=== PATIENT | male | born 1995 | race Two or more races ===

== ENCOUNTER 2018-09-07 07:46 | Emergency (ER) | payer OTHER ==
[2018-09-07 07:59] VITALS: BMI 19.8
--- NOTE | 2018-09-07 08:50 | PDOC ---
Attending Attestation - Resident Resident Name: Whitney Ann - ED Attending Attestation I have performed the following: I have examined & evaluated the patient, The case was reviewed & discussed with the resident, I agree w/resident's findings & plan - HPI HPI: 09/07/18 08:51 Mr Jain 23 YOM with h/o cerebral palsy, G tube with prior history of dislodgements presenting from [facility] with dislodged G tube this morning. History provided by aide at bedside, pt with CP and nonverbal 09/07/18 08:51 - Physicial Exam PE: 09/07/18 08:51 NAD, nonverbal. awake and alert to surroundings. PERRL, EOMI, nl conjunctiva, anicteric; neck supple. lungs clear, RRR, abdomen soft nontender, mid abdomen G tube site clean and dry, no purulence or erythema. tube in place, easily removable with broken balloon.. ROA x4, +contracted. No peripheral edema. normal color for ethnicity, WWP. - Medical Decision Making 09/07/18 08:52 VS wnl, reviewed. no fever G tube dislodged, stoma intact w/o signs of infection. Area cleaned with betadine. 24 Danish G tube inserted with sterile lubricant, balloon inflated with 6cc saline. Flushed with saline and gastroview. Patency confirmed on Abdomen Xray. no extravasation. Site cleaned and covered with gauze. Pt tolerated bedside procedure well without complications. DC back to [facility] with G tube care instructions. 09/07/18 08:53
--- NOTE | 2018-09-07 09:12 | PDOC ---
History of Present Illness - General Stated Complaint: G-TUBE CHECK Time Seen by Provider: 09/07/18 07:50 History Source: Care Provider - History of Present Illness Initial Comments: 09/07/18 09:06 Patient is a 23 y/o male with a history of cerebral palsy, mental retardation, and Gtube who presents for visualizing his G tube. Patient pulled out his Gtube and his rn transitional care at [facility] pushed it back in but they wanted to make sure it was functioning. They have flushed it but have not fed him yet. Patients Gtube was last working yesterday. Upon inspection the balloon was found to have a hole in it. We replaced it and took imaging to make sure it was in the right place. Past History - Past Medical History Allergies/Adverse Reactions: Allergies Allergy/AdvReac Type Severity Reaction Status Date / Time amoxicillin trihydrate Allergy Verified 09/07/18 07:55 [From Augmentin] potassium clavulanate Allergy Verified 09/07/18 07:55 [From Augmentin] Home Medications: Ambulatory Orders Guar Gum [Benefiber] 1 each GT BID 09/25/14 Cetirizine HCl [Children's Zyrtec] 1 mg GT DAILY 06/09/15 Cholecalciferol (Vitamin D3) [Vitamin D-3] 2,000 unit GT DAILY 06/09/15 Escitalopram Oxalate [Lexapro -] 10 mg GT DAILY 06/09/15 Nutritional Supplement [Peptamen 1.5] 250 ml GT BID 06/09/15 Nystatin Ointment [Mycostatin Ointment -] 1 applic TP BID applic 07/29/15 Asthma: Yes COPD: No GI Disorders: Yes (constipation) Psychiatric Problems: Yes Other medical history: mr,cerebral palsy, quadriplegia scoliosos - Suicide/Smoking/Psychosocial Hx Smoking History: Never smoked Have you smoked in the past 12 months: No Number of Cigarettes Smoked Daily: 0 Cigars Per Day: 0 Information on smoking cessation initiated: No Hx Alcohol Use: No Drug/Substance Use Hx: No Substance Use Type: None Hx Substance Use Treatment: No Review of Systems - Review of Systems Constitutional: No: Chills, Fever Respiratory: No: Cough, Shortness of Breath Cardiac (ROS): No: Chest Pain, Palpitations ABD/GI: No: Abdominal Distended, Constipated, Diarrhea, Nausea, Vomiting Musculoskeletal: No: Back Pain *Physical Exam - Vital Signs Last Vital Signs Temp Pulse Resp BP Pulse Ox 74 18 148/95 97 09/07/18 07:55 09/07/18 07:55 09/07/18 07:55 09/07/18 07:55 - Physical Exam Comments: 09/07/18 09:10 GENERAL: patient in a wheel chair, awake, non verbal HEART: RRR, no murmurs, rubs, or gallops LUNGS: CTAL B/L ABD: no tenderness, no abdominal pain, non distended, hole periumbilical without erythema or discharge EXTREMITIES: no pitting edema SKIN: no rashes or ulcers noted Medical Decision Making - Medical Decision Making 09/07/18 09:11 24 Upper Sorbian G tube inserted with sterile lubricant, balloon inflated with 6cc saline. Flushed with saline and gastroview. Patency confirmed on Abdomen Xray. no extravasation. Site cleaned and covered with gauze. XRAY with contrast taken, show's tube is in gastric body and without leaks *DC/Admit/Observation/Transfer Diagnosis at time of Disposition: Attention to gastrostomy tube - Discharge Dispostion Disposition: LONG TERM FACILITY Condition at time of disposition: Good - Referrals Referrals: Martell Ferguson Jr [Primary Care Provider] - - Patient Instructions Printed Discharge Instructions: How to Care for Your Child's Gastrostomy Tube Additional Instructions: He presented to the Emergency Department to check the function of his G tube. We found that it was broken and we replaced it with a Upper Sorbian 24 G tube. Please try to keep the area clean and dry. Do not let him pull on the tube. Please return to the Emergency Department if his abdomen becomes distended, he has nausea, vomiting, is in distress or is in pain. - Post Discharge Activity
[2018-09-07 09:26] VITALS: BP 139/81; PULSE 81; TEMP 98
== END 2018-09-07 09:26 ==
LOC: JER 07:46
PROC: 0DH60UZ Insertion of Feeding Device into Stomach, Open Approach (ICD-10-PCS; principal; 2018-09-07)
DX: Z43.1 Encounter for attention to gastrostomy (principal); G80.9 Cerebral palsy, unspecified; F79 Unspecified intellectual disabilities
CPT/HCPCS: 49450; 74018-TC-FY; 99282-25